=== PATIENT | female | born 1960 | race Caucasian/White ===

== ENCOUNTER 2016-12-28 20:30 | Observation (INO) ==
--- NOTE | 2016-12-28 20:45 | Emergency Department Note ---
Disposition Clinical Impression: TIA (transient ischemic attack) Qualifiers: Transient cerebral ischemia type: unspecified Qualified Code(s): G45.9 - Transient cerebral ischemic attack, unspecified Syncope Qualifiers: Syncope type: unspecified Qualified Code(s): R55 - Syncope and collapse Disposition: Admitted As Inpatient Condition: Fair Time of Disposition: 22:45 Altered Mental Status HPI - General Chief Complaint: ED Altered Mental Status Stated Complaint: AMS Time Seen by Provider: 12/28/16 20:35 Source: family Mode of arrival: wheelchair Limitations: altered mental status Nursing Notes Reviewed: Yes Vital Signs Reviewed: Yes - History of Present Illness HPI Narrative: 56-year-old female presents to the ED as a medical assist for syncope and not acting herself. She was here visiting with her sister and step daughter visiting her ill mother who is admitted here at [facility]. Prior to arrival patient apparently was offered water but then became acutely altered, not able to speak apparently had a syncopal episode. She was wheelchaired to ED 10. On arrival to emergency department sister reports that she has history of anxiety attacks that this was likely anxiety related with the news of her mother. She had recently lost her in visiting her mother today set it off. Blood sugar 102. She does not show any acute focal deficits. They deny any seizure like activity, she was reportedly unconsciousness for 1 minutes. No head injury. Initially she recognizes her twin sister and say her name. Most of the history was given by sister. When asking patient questions she refuses to answer or speak. But lashes out and yelled "let me go home" and "they are going to kill me ". Concerned for her aphasia Stroke Alert was subsequently called. Last known well prior to arrival at 2030. Unable to perform a full NIH assessment NIH score at least 4 due to complete dysarthria and aphasia. However, once stroke alert was called at 2100 symptoms completely spontaneously resolved. She was able to answer questions without difficulty. NIH score 0. Patient was pushed to CT for CT head scan. complaint: altered mental status, confusion - Related Data Home Medications Medication Instructions Recorded Confirmed Lisinopril 12/28/16 Potassium Chloride 12/28/16 Pravastatin Sodium 12/28/16 12/28/16 Allergies Allergy/AdvReac Type Severity Reaction Status Date / Time No Known Allergies Allergy Verified 12/28/16 22:01 Limitations: ROS unobtainable due to patients medical condition (initially due to aphasia but after stroke alert called she answered) Constitutional: Denies: fever, chills Cardiovascular: Denies: chest pain Respiratory: Denies: cough, dyspnea Gastrointestinal: Denies: abdominal pain, nausea, vomiting Genitourinary: Denies: urgency, dysuria Musculoskeletal: Denies: back pain, neck pain Integumentary: Denies: rash, abrasion Neurological: Denies: headache, weakness, numbness Psychiatric: Reports: anxiety Past Medical History - Past Medical History Attestation: Yes The following information was validated with the patient. Source: patient, obtained from family Physical Exam - General Limitations: altered mental status (initially aphasic but now alert and oriented to person place and time) General appearance: alert, in no apparent distress - Head Head exam: atraumatic, normocephalic, normal inspection - Eye Eye exam: Present: normal appearance, PERRL, EOMI - ENT ENT exam: normal exam, normal oropharynx, mucous membranes moist - Neck Neck exam: Present: normal inspection, full ROM, trachea midline - Chest Chest inspection: Present: normal inspection, symmetric chest wall rise. Absent : tenderness - Respiratory Respiratory exam: Present: normal lung sounds bilaterally. Absent: respiratory distress, wheezes - Cardiovascular Cardiovascular exam: Present: regular rate, normal rhythm, normal heart sounds. Absent: systolic murmur, diastolic murmur - Abdominal Exam Abdominal exam: Present: soft, Non-Tender, normal bowel sounds. Absent: tenderness, distention, guarding, rebound, rigidity - Extremities Exam Extremities exam: Present: normal inspection, full ROM, normal capillary refill. Absent: tenderness, pedal edema, calf tenderness - Neurological Exam Neurological exam: Present: alert, oriented X3, CN II-XII intact, normal gait - Expanded Neurological Exam Patient oriented to: Present: person, place, time (2017, unable to recall month) Speech: Present: fluid speech, total aphasia (intially) Cranial nerves: EOM function (II, III, IV, ): Normal, facial sensation (V): Normal, facial palsy (VII): Normal, gag reflex (IX): Normal, spinal accessory function (XI): Normal, tongue deviation (XII): Normal Cerebellar function: finger to nose: Normal, heel to menezes: Normal Cerebellar function: normal gait Motor strength - LUE: 5/5 Motor strength - RUE: 5/5 Motor strength - LLE: 5/5 Motor strength - RLE: 5/5 Upper motor neuron exam: sil neglect: Absent bilaterally, pronator drift: Absent bilaterally Sensory exam upper extremity: light touch: Normal Sensory exam lower extremity: light touch: Normal - Psychiatric Psychiatric exam: Present: normal affect, normal mood - Skin Skin exam: Present: warm, dry, intact, normal color. Absent: rash, cyanosis Course Course Narrative: There was a delay in the stroke alert because family initially suggested that this was possibly anxiety related but when examining the patient she remained aphasic. After pleading to answer questions to best assess the situation and her condition she remained aphasic. Stroke alert was called at 2100. Initial NIH assessment was incomplete due to her aphasia, but likely greater than 4 due to aphasia and dysarthria. Once stroke alert was called patient had complete resolution of symptoms. She was alert, oriented and able to follow commands and speak without difficulty. She answers my questions without difficulty and could recall events prior to syncopal episode. Her aphasia has completely resolved. She has no focal neural deficits. NIH is now 0. Symptoms have rapidly improved and would not be appropriate for tPA. At 2121 stroke alert was cancelled. She never had any facial droop or focal neural deficit. She was able to walk from the wheelchair and sit on the bed cot. Stroke workup initiated. Likely will admit for TIA. - Reevaluation(s) Reevaluation #1: Patient is ambulatory and has normal gait walking to bathroom. Symptoms have completely resolved. Radiologist called in for negative CAT scan of the head for hemorrhage. Patient will likely need admission for TIA workup and syncope. EKG is normal sinus rhythm without signs of LVH, delta wave, acute ischemic changes. Patient is in agreement with plan. Time: 21:40 - Consultations Consultation #1: Spoke with Dr. Medina, hospitalist, tatiana to admit for TIA and syncope. No further orders. Admit for observation. Time: 22:44 Vital Signs Temperature 98.4 F 12/28/16 20:34 Pulse Rate 91 12/28/16 20:34 Respiratory Rate 16 12/28/16 20:34 Blood Pressure 146/127 12/28/16 20:34 O2 Sat by Pulse Oximetry 98 12/28/16 20:34 Temperature 98.4 F 12/28/16 20:34 Pulse Rate 84 03/07/17 21:16 Respiratory Rate 16 12/28/16 21:16 Blood Pressure 126/82 12/28/16 21:16 O2 Sat by Pulse Oximetry 98 12/28/16 20:34 Oxygen Delivery Oxygen Delivery Room Air Altered Mental Status - Medical Records Medical records reviewed: Yes I reviewed the patient's medical records. - Lab Data Lab results reviewed: Yes I reviewed the patient's lab results. Result diagrams: 12/28/16 21:07 12/28/16 21:07 Lab Results 12/28/16 12/28/16 12/28/16 Range/Units 20:39 21:07 21:07 WBC 8.2 (4.3-11.1) K/mcL RBC 4.72 (3.82-4.97) M/mcL Hgb 14.3 (11.5-15.4) g/dL Hct 42.5 (35.3-44.9) % MCV 90.0 (83.0-100.0) fL MCH 30.3 (28.0-33.3) pg MCHC 33.6 (31.6-35.5) g/dL RDW 12.5 (11.5-14.5) % Plt Count 394 (140-400) K/mcL MPV 9.1 L (9.4-12.4) fL Immature Gran % 0.4 (0-4) % Seg Neutrophils % 42.7 % Lymphocytes % 43.9 % Monocytes % 6.9 % Eosinophils % 4.8 % Basophils % 1.3 % Neutrophils # 3.5 (1.6-8.9) K/mcL Lymphocytes # 3.6 (0.6-4.6) K/mcL Monocytes # 0.6 (0.0-1.3) K/mcL Eosinophils # 0.4 (0.0-0.6) K/mcL Basophils # 0.1 (0.0-0.2) K/mcL Immature Plt Fraction 2.1 (1.1-6.1) % PT 10.2 (9.4-12.1) Seconds INR 1.0 APTT 34.1 (26.0-36.0) Seconds Sodium (136-145) mEq/L Potassium (3.5-4.5) mEq/L Chloride (98-109) mEq/L Carbon Dioxide (19-29) mEq/L BUN (7-20) mg/dL Creatinine (0.57-1.11) mg/dL Est GFR ( Amer) (> 60) Est GFR (Non-Af Amer) (> 60) BUN/Creatinine Ratio (6-26) Glucose (70-99) mg/dL POC Glucose 106 H (58-89) Calculated Osmolality (280-300) Calcium (8.6-10.8) mg/dL Troponin I (0-0.03) ng/mL 12/28/16 12/28/16 Range/Units 21:07 21:07 WBC (4.3-11.1) K/mcL RBC (3.82-4.97) M/mcL Hgb (11.5-15.4) g/dL Hct (35.3-44.9) % MCV (83.0-100.0) fL MCH (28.0-33.3) pg MCHC (31.6-35.5) g/dL RDW (11.5-14.5) % Plt Count (140-400) K/mcL MPV (9.4-12.4) fL Immature Gran % (0-4) % Seg Neutrophils % % Lymphocytes % % Monocytes % % Eosinophils % % Basophils % % Neutrophils # (1.6-8.9) K/mcL Lymphocytes # (0.6-4.6) K/mcL Monocytes # (0.0-1.3) K/mcL Eosinophils # (0.0-0.6) K/mcL Basophils # (0.0-0.2) K/mcL Immature Plt Fraction (1.1-6.1) % PT (9.4-12.1) Seconds INR APTT (26.0-36.0) Seconds Sodium 141 (136-145) mEq/L Potassium 3.8 (3.5-4.5) mEq/L Chloride 103 (98-109) mEq/L Carbon Dioxide 27 (19-29) mEq/L BUN 11 (7-20) mg/dL Creatinine 0.80 (0.57-1.11) mg/dL Est GFR ( Amer) > 60 (> 60) Est GFR (Non-Af Amer) > 60 (> 60) BUN/Creatinine Ratio 14 (6-26) Glucose 94 (70-99) mg/dL POC Glucose (58-89) Calculated Osmolality 291 (280-300) Calcium 9.2 (8.6-10.8) mg/dL Troponin I 0.00 (0-0.03) ng/mL - Radiology Data Radiology results reviewed: Yes I reviewed the patient's radiology results. Head CT 12/28/16 00:00 IMPRESSION: No acute intracranial abnormality. The findings were called to Dr. Olmstead on 12/28/2016 at 9:25 p.m. D/ / 12/28/2016 21:31:38 Chriss Riley MD / earno Interpreting Provider: Chriss Riley MD - EKG Data EKG attestation: Yes I reviewed and interpreted this EKG. EKG results narrative: EKG performed 2054 normal sinus rhythm 85 bpm, good R-R wave progression, normal axis, there are no ST elevations or depressions, no T-wave inversions, Q waves in lead III. Intervals are within normal limits GA interval 185 QRS 86 QT QTC 352 395. Compared to old EKG performed 09/15/2010 shows consistent findings normal sinus rhythm 1st degree AV block. No acute ischemic changes. No delta wave, LVH, or Brugada pattern. TPA Checklist - Source Information Source: Family - Eligibilty for IV tPA 1. LKW equal to or less than 4.5 hours be before treatment: Yes 2. Clinical diagnosis of ischemic stroke causing deficit: Yes 3. Age 18 years or older: Yes - Contraindications 4. Evidence of intracranial hemorrhage on pretreatment CT: No 5. Presentation suggests subarachnoid hem, even if CT normal: No - Relative Contraindications 19. Only minor or rapidly improving stroke symptoms: Yes Attestation Statement - Attestation Attestation: I examined this patient and my medical decision-making was reviewed with the PHARMACY AFFAIRS ASSISTANT/PA/Advanced Practice Nurse/Resident Physician. I agree with the documented findings, disposition and treatment plan as described except to the extent set forth below. Patient presents to the emergency department with difficulty speaking. Patient was brought down from the floor. The history from the patient's sister. States she has been this before and been worked up and ruled out for seizures. She has a history of anxiety. On examination she is awake and alert. Moving all extremities. Patient is having trouble speaking. Plan. Family states is consistent with her anxiety. She was monitored but was not improving. Stroke alert was called. Discussed and the dangers of TPA if that was deemed necessary for her aphasia. Patient shortly thereafter began speaking. Patient' s speech normal per family. Stroke CT negative. Labs pending at this time. His workup is unremarkable. She is returned to baseline. She is admitted for TIA workup. NIH Stroke Scale - Level of Consciousness LOC: Alert - LOC Commands LOC Commands: Performs both correctly - Best Gaze Best Gaze: Normal - Facial Palsy Facial Palsy: Normal - Motor Arms Motor Arm-Left: No drift for 10 seconds Motor Arm-Right: No drift for 10 seconds - Motor Legs Motor Leg-Left: No drift for 5 seconds Motor Leg-Right: No drift for 5 seconds - Limb Ataxia Limb Ataxia: Normal, No Ataxia - Sensory Sensory: Normal - Best Language Best Language: Mute, no usable speech - Dysarthria Dysarthria: UN Intubated or other physical barrier (explain) (Aphasic) - Extinction and Inattention Extinction and Inattention: Normal - Pupil Exam Bilateral Pupil Reaction: Brisk (NIH Limited by patient's inability to speak. Repeat NIH was 0)
[2016-12-28 21:26] LABS: Basophils # 0.1 K/mcL (0.0-0.2); Basophils % 1.3 %; Eosinophils # 0.4 K/mcL (0.0-0.6); Eosinophils % 4.8 %; Hematocrit 42.5 % (35.3-44.9); Hemoglobin 14.3 g/dL (11.5-15.4); Immature Granulocytes % 0.4 % (0-4); Immature Platelets 2.1 % (1.1-6.1); Lymphocytes # 3.6 K/mcL (0.6-4.6); Lymphocytes % 43.9 %; Mean Corpuscular HGB Conc 33.6 g/dL (31.6-35.5); Mean Corpuscular Hemoglobin 30.3 pg (28.0-33.3); Mean Platelet Volume 9.1 fL (9.4-12.4); Monocytes # 0.6 K/mcL (0.0-1.3); Monocytes % 6.9 %; Neutrophils # 3.5 K/mcL (1.6-8.9); Platelet Count 394 K/mcL (140-400); Red Blood Count 4.72 M/mcL (3.82-4.97); Red Cell Distribution Width 12.5 % (11.5-14.5); Segmented Neutrophils % 42.7 %
[2016-12-28 21:30] LABS: Prothrombin Time 10.2 Seconds (9.4-12.1)
[2016-12-28 21:33] LABS: Activated Partial Thrombo Time 34.1 Seconds (26.0-36.0); BUN/Creatinine Ratio 14 (6-26); Blood Urea Nitrogen 11 mg/dL (7-20); Calcium 9.2 mg/dL (8.6-10.8); Carbon Dioxide 27 mEq/L (19-29); Chloride 103 mEq/L (98-109); Glucose 94 mg/dL (70-99); Osmolality,Calculated 291 (280-300); Potassium 3.8 mEq/L (3.5-4.5); Sodium 141 mEq/L (136-145); eGFR For African Americans > 60 (> 60); eGFR For Non-African Americans > 60 (> 60)
[2016-12-29] MEDS ORDERED: *HR* OxyCODONE Immed Rel 5 MG TABLET PO PRN (02:01)
[2016-12-29] MEDS ORDERED: Ondansetron ODT 4 MG TAB.RAPDIS SL PRN (02:01)
[2016-12-29] MEDS ORDERED: Acetaminophen 325 MG TABLET PO PRN (02:01)
[2016-12-29] MEDS ORDERED: Naloxone 0.4 MG/ML INJ IVP PRN (02:01)
--- NOTE | 2016-12-29 02:53 | Internal Med History&Physical ---
Date of Encounter: 12/29/16 Time of Encounter: 02:53 Assessment and Plan (1) Syncope Current visit: Yes Status: Acute Patient brought to the ED after becoming acutely confused. She started to fall and family reports she was helped to the floor where she was unconscious for approximately 1 min. Patient was unable to speak and very agitated. Symptoms spontaneously resolved and neuro exam is benign. Concern for possible syncope or TIA. However feel that this could be a conversion episode as patient has a history of anxiety and has been under increased stress with the recent of her and her mother in the hospital. Will do basic syncope workup to exclude other cause. Head CT was negative, do not feel that an MRI is indicated. All electrolytes are within normal limits. 1. EEG 2. ECHO 3. Carotid duplex 4. Cardiac monitoring 5. Aspirin 6. Monitor neuro status 7. Fluids until tolerating regular diet 8. Bedside swallow then regular diet 9. PT/OT consult Qualifiers: Syncope type: unspecified Qualified Code(s): R55 - Syncope and collapse (2) Aphasia Current visit: Yes Status: Acute (3) DVT prophylaxis Current visit: Yes Status: Acute Heparin for DVT prophylaxis. Internal Medicine - H&P: HPI Chief complaint: Syncope, AMS Admitted From: Emergency Dept Plans for Post Hospital Care: Home History of present illness: Ms. Wood is a 56 year old female with PMH including hypertension and anxiety who brought to the ED after a medical assist was called for her on the floor for syncope/AMS. Patient was here with her sister to visit their mother who is a patient here. Family reported that patient became acutely confused. She started to fall and family reports she was helped to the floor where she was unconscious for approximately 1 min. Patient awoke on her own, was confused and agitated. She was unable to speak, appeared very anxious and only seemed to recognize her twin sister. Patient was taken to the ED where a stroke alert was called due to patient's aphasia. After the stroke alert was called and patient returned from CT, all over her symptoms spontaneously resolved. Patient became alert and orientec x3, with no focal neurological symptoms and was able to ambulate with no difficulties. On conversation, patient reports that she does not remember what happened today. She states that she believes something like this has happened to her before but she doesn't know when or what the circumstances where. She does deny any history of stroke or KS. Currently patient denies any blurry vision, MARCELINO, chest pain, shortness of breath , abdominal pain or changes in bowel or bladder function. In the ED, patient was afebrile with vital signs largely within normal limits. Labs grossly normal. Head CT showed no acute abnormality. On exam, patient is awake and alert, answering questions appropriately. Pupils are equal and reactive. Peripheral vision intact. Lungs clear to auscultation. Heart regular rate and rhythm. Abdomen soft nontender. Neuro exam largely benign. Cranial nerves intact. No upper extremity drift. 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 No lower extremity drift. Sensation grossly intact upper and lower extremities Past Med Surg Social Fam HX - Past Medical History Medical history: hyperlipidemia, hypertension Psychiatric history: anxiety - Past Surgical History Surgical History: no surgical history - Social History Smoking Status: Former smoker Smokeless Tobacco Status: No Alcohol use: none Drug use: none - Family History Mother Hx Family Cardiac Disorders: Yes Internal Medicine - H&P: Meds Lisinopril 12/28/16 [History] Potassium Chloride 12/28/16 [History] Pravastatin Sodium 12/28/16 [History] Allergies No Known Allergies Allergy (Verified 12/28/16 22:01) All Systems PM: A 10-system review of systems was performed and is negative for pertinent findings except as documented above in the HPI. - Constitutional Constitutional: no chills, no fever(s), no falls - EENT Eyes: no blurry vision, no change in vision - Cardiovascular Cardiovascular ROS IM: no chest pain, no dyspnea, no dyspnea on exertion, no irregular heart rhythm, no palpitations - Respiratory Respiratory: no cough, no dyspnea, no dyspnea on exertion, no wheezing - Gastrointestinal Gastrointestinal: no abdominal pain, no cramping, no diarrhea, no nausea, no vomiting - Genitourinary Genitourinary: no change in urinary stream, no dysuria - Neurological Neurological ROS: confusion, no abnormal gait, no abnormal movements, no abnormal speech, no focal weakness, no headache(s), no tingling, no tremor(s), no weakness - Constitutional Vitals: Temp Pulse Resp BP Pulse Ox 97.6 F 80 12 109/68 97 12/29/16 00:05 12/29/16 00:05 12/29/16 00:05 12/29/16 00:05 12/29/16 00:05 General appearance: Present: A&O X 3, pleasant, no acute distress - Head Head exam: Present: atraumatic, normal inspection, normocephalic - Eye Eye exam: Present: normal appearance, PERRL - ENT ENT exam: Present: mucous membranes moist - Respiratory Respiratory exam: Present: CTAB. Absent: rales, rhonchi, wheezes - Cardiovascular Cardiovascular exam: Present: RRR - GI/Abdominal GI/Abdominal exam: Present: soft. Absent: guarding, rebound, rigid, tenderness - Extremities Exam Extremities exam: Present: normal inspection. Absent: pedal edema - Expanded Neurological Exam Neurological exam expanded: Present: protecting the airway Patient oriented to: Present: person, place, time Speech: Present: fluid speech Upper motor neuron: Marcelo neglect: Normal, pronator drift: Normal Sensory exam: lower extremity light touch: Normal, upper extremity light touch: Normal Neuro motor strength exam: LUE: 4, RUE: 4, LLE: 5, RLE: 5 Coma Scale Eye Opening: Spontaneous Coma Scale Motor Response: Obeys Commands Coma Scale Verbal Response: Oriented Coma Scale Total: 15 Internal Med - H&P Results - Labs CBC & Chem 7: 12/28/16 21:07 12/28/16 21:07
--- NOTE | 2016-12-29 03:08 | Event Note ---
Date of Encounter: 12/29/16 Time of Encounter: 03:08 Patients examined with medical care evaluation specialist. Suspect conversion disorder. However this is a diagnosis of exclusion. We will check in EEG: carotid. If all well, will discharge in a.m.
[2016-12-29] MEDS: 0.9 % Sodium Chloride 1,000 ML IVC SCH (06:23)
[2016-12-29] MEDS: *HR* Heparin 5,000 UNIT/ML VIAL SQ SCH ×2 (06:24→22:19)
[2016-12-29 07:25] LABS: Chol/HDL Ratio 4.2 (0-4.9)
[2016-12-29] MEDS: Aspirin 81 MG TAB.CHEW PO SCH (07:52)
--- NOTE | 2016-12-29 10:52 | Neurology - Consult Note ---
<Pelon Ross - Last Filed: 12/29/16 13:28> Date of Encounter: 12/29/16 Time of Encounter: 10:50 Assessment and Plan (1) Syncope Current Visit: Yes Status: Acute Patient's neurologic examination is benign. She is slightly slow to answer questions but appears to be contemplated. The patient answers all questions correctly and follows all commands. The patient is a poor historian but seems to be more participation and not wanting to answer any questions. The patient has had history of syncope in the past but is unsure the etiology. The patient denies any prodromal symptoms noted. With the patient's recent loss of and son she seems to be very distraught at this time. The need for further imaging of the patient does not seem warranted at this time given the patient's lack of focalized deficits on initial examination as well as further examination. The patient was noted to be aphasic upon presentation to the emergency department but this again appears to be participatory and cooperative rather than true aphasia. The patient does admit not wanting to speak intermittently due to "feeling sad". The patient is very tearful during the examination. Echocardiogram, carotid Doppler, EEG are currently pending. The patient denies any suicidal attempt or medication or toxin overdose. There could be a component of possible seizure-like activity given the patient's symptoms but are unlikely given the patient's past and lack of seizures. EEG and further follow-up are warranted. There also may be a non-neurologic component of the patient's syncope. Psychiatric evaluation may also be warranted at this time. We will continue to follow the patient and monitor for any neurologic changes. (2) Hypertension Current Visit: Yes Status: Chronic History of Present Illness Chief complaint: Fall, AMS HPI: Ms. Wood is a 56 year old female with history of hypertension arrives to [facility] emergency department after the patient was at home and was not quite acting like herself according to family and had a syncopal episode to where the patient had a controlled fall by her daughter and was on the ground for roughly 1 minute. Upon awakening the patient remained very agitated for 2-3 minutes and then quickly came to back to her baseline. The patient was brought to the emergency department at this time for further workup. Head CT revealed no acute findings. No other etiology of the patient' s symptoms or events was found in the emergency department the patient was admitted to the hospitalist for further workup. The patient recently lost her as well as her son within the past month. She did this and the patient is very distraught due to her mother being in the hospital at this time. The patient admits to a large amount of stress and is very tearful at this time upon further questioning of recent events and history of falls. The patient does state that she has had near syncopal or syncopal episodes in the past and has had "workups". She is unsure what the etiology of these events are. The patient denies any history of seizure like activity, any prodromal symptoms including chest pain, difficulty breathing, headache, shaking, on swells, visual changes. The patient denies any complaints at this time other than "feeling sad". Past Med Surg Social Fam HX - Past Medical History Attestation: Yes The following information was validated with the patient. Medical history: hyperlipidemia, hypertension Psychiatric history: anxiety - Past Surgical History Surgical History: no surgical history - Social History Smoking Status: Former smoker Smokeless Tobacco Status: No Alcohol use: none Drug use: none Current living situation: Home - Independent - Family History Mother Hx Family Cardiac Disorders: Yes Medications and Allergies Lisinopril [Zestril] 10 mg PO DAILY 12/28/16 [History] Potassium Chloride [K-Tab ER] 20 meq PO BID 12/28/16 [History] Pravastatin Sodium [Pravachol] 40 mg PO DAILY 12/28/16 [History] Allergies No Known Allergies Allergy (Verified 12/28/16 22:01) All Systems: A 10-system review of systems was performed and is negative for pertinent findings except as documented above in the HPI. Review of Systems: Patient denies any complaints at this time. - Psychiatric Psychiatric general PM: abnormal sleep pattern, anxiety, hopelessness, memory loss Physical Examination - Vital Signs Vital Signs: Initial Vital Signs Temp Pulse Resp BP Pulse Ox 98.4 F 91 16 146/127 98 12/28/16 20:34 12/28/16 20:34 12/28/16 20:34 12/28/16 20:34 12/28/16 20:34 - Constitutional General appearance: comfortable - Neurologic Sensorimotor examination: intact Detailed motor examination: full strength in all major muscle groups Motor examination - right side: 5/5: deltoids, biceps, triceps, wrist flexion, wrist extension, bottling supervisor, hip flexors, tibialis Anterior, quadriceps, toe extension (EHL), plantarflexion Motor examination - left side: 5/5: deltoids, biceps, triceps, wrist flexion, wrist extension, hip flexors, bottling supervisor, quadriceps, tibialis Anterior, toe extension (EHL), plantarflexion Detailed sensory examination: intact Reflexes: Biceps: 2+, Brachioradialis: 2+, Patella: 2+, Achilles: 2+ Mental Status Examination: awake, alert, oriented to person, oriented to place, oriented to time, follows commands appropriately, answers questions appropriately, no agnosia, no aphasia, no aproxia Cranial nerve examination: PERRL, EOMI, visual alvarez intact, corneal reflexes brisk symmetrically, sensory to face intact, mastication intact, no facial asymmetry is present, no dysarthria, hearing is intact symmetrically, soft palate elevates bilaterally upon phonation, gag reflex intact, flexes SCM and trapezius muscles symmetrically with full power, tongue protrudes midline, no atrophy or facial fasiculations present Cerebellar examination: no dysmetria, performs finger to nose and heel to menezes symmetrically without ataxia, no gait ataxia, no truncal ataxia, no difficulty with rapid alternating movements Results - Laboratory Findings CBC and BMP: 12/28/16 21:07 12/28/16 21:07 Abnormal lab findings: Abnormal lab results MPV 9.1 fL (9.4-12.4) L 12/28/16 21:07 POC Glucose 106 (58-89) H 12/28/16 20:39 Triglycerides 154 mg/dL (< 150) H 12/29/16 06:28 Cholesterol 217 mg/dL (< 200) H 12/29/16 06:28 LDL Cholesterol, Calc 134 mg/dL (0-99) H 12/29/16 06:28 VLDL Cholesterol, Calc 31 mg/dL (< 31) H 12/29/16 06:28 - Attending Attestation I examined this patient and my medical decision-making was reviewed with the Resident Physician. I agree with the documented findings, disposition and treatment plan as described except to the extent set forth below. Consult Discharge Plan - [facility] [place] [Primary Care Provider[facility] - <Jose Cunningham I - Last Filed: 12/29/16 15:49> Assessment and Plan (1) Syncope Current Visit: Yes Status: Acute I examined this patient and my medical decision-making was reviewed with the Resident Physician. I agree with the documented findings, disposition and treatment plan as described except to the extent set forth below. will review EEG, at this point no need for any AED levels that is abnormality on the EEG she already had a CT scan of the head which was reported as negative perhaps made to MRI of the brain without contrast to exclude any other etiology, She would benefit from formal psychiatric evaluation as I strongly suspect that her symptoms are related to underlying severe distress. He did have some difficulty with the left-sided lower extremity weakness for which she could be evaluated by physical therapy suspect is more peripheral than central. s I think it could be reasonable to get an MRI of the brain to make sure no other intracranial process as sometimes early CT imaging does not show any acute abnormality. There are no focal findings but certainly the possibility of infarct in the frontal lobe that can present with behavior changes. Jose Cunningham MD Qualifiers: Syncope type: unspecified Qualified Code(s): R55 - Syncope and collapse History of Present Illness HPI: Ms. Wood is a 56 year old female All Systems: A 10-system review of systems was performed and is negative for pertinent findings except as documented above in the HPI. Physical Examination - Vital Signs Vital Signs: Initial Vital Signs Temp Pulse Resp BP Pulse Ox 98.4 F 91 16 146/127 98 12/28/16 20:34 12/28/16 20:34 12/28/16 20:34 12/28/16 20:34 12/28/16 20:34 Results - Laboratory Findings CBC and BMP: 12/28/16 21:07 12/28/16 21:07 Abnormal lab findings: Abnormal lab results MPV 9.1 fL (9.4-12.4) L 12/28/16 21:07 POC Glucose 106 (58-89) H 12/28/16 20:39 Triglycerides 154 mg/dL (< 150) H 12/29/16 06:28 Cholesterol 217 mg/dL (< 200) H 12/29/16 06:28 LDL Cholesterol, Calc 134 mg/dL (0-99) H 12/29/16 06:28 VLDL Cholesterol, Calc 31 mg/dL (< 31) H 12/29/16 06:28
[2016-12-29 13:02] LABS: Amphetamine Screen,Urine Negative ng/mL (Cutoff=1000); Barbiturate Screen,Urine Negative ng/mL (Cutoff=200); Benzodiazepines Screen,Urine Negative ng/mL (Cutoff=200); Cannabinoid Screen,Urine Negative ng/mL (Cutoff = 50); Cocaine Screen,Urine Negative ng/mL (Cutoff= 300); Opiate Screen,Urine Negative ng/mL (Cutoff=300); Phencyclidine Screen,Urine Negative ng/mL (Cutoff=25)
--- NOTE | 2016-12-29 13:31 | Internal Med Progress Note ---
Date of Encounter: 12/29/16 Time of Encounter: 12:30 - Assessment and plan (1) Aphasia Current Visit: Yes Status: Acute Assessment and plan: Unclear causation at this time. Patient is alert and interactive however she is still bleed when answering questions and gets confused at times. She does not remember the event yesterday at which time a medical payment poster was called in on her. She does not know why her mom was in the hospital. She is able to answer simple orientation questions and is oriented 3. She denies pain or shortness of breath. Head CT negative. Tox screen negative. OARRS report negative. Carotid ultrasound, echocardiogram, and EEG are pending. OT and PT have recommended ECF placement, social studies department chair on board. Neurology also on board. She does not have any focal neurological weakness is present on examination. During my interaction with her, she was attempting to eat lunch but had difficulty opening the silverware from the plastic case and had difficulty eating a wrap as she was attempting to enroll the wrap appeared as if she could not figure out how to eat it. Her family was present in the emergency department and initially upon her admission and they state that how she is acting now is consistent with how her anxiety manifests. They state that she has recently experienced the of her being in the hospital with her mom likely triggered an anxiety attack. We will await results of EEG, echocardiogram, and carotid. Initial conclusion is that the patient is on several antianxiety meds as she appears mildly sedated however tox screen negative- could be taking medications not covered on standard tox screen. Patient denies any drug or alcohol abuse. ITS Impressions Head CT 12/28/16 00:00 IMPRESSION: No acute intracranial abnormality. The findings were called to Dr. Olmstead on 12/28/2016 at 9:25 p.m. D/ / 12/28/2016 21:31:38 Chriss Riley MD / earno Interpreting Provider: Chriss Riley MD (2) Syncope Current Visit: Yes Status: Acute Assessment and plan: See prior note for aphasia Qualifiers: Syncope type: unspecified Qualified Code(s): R55 - Syncope and collapse (3) TIA (transient ischemic attack) Current Visit: Yes Status: Suspected (4) DVT prophylaxis Current Visit: Yes Status: Acute Assessment and plan: Subcutaneous heparin (5) Hypertension Current Visit: Yes Status: Chronic Assessment and plan: Controlled/hypotensive at times. Home dose of lisinopril is being held, will continue to trend Qualifiers: Hypertension type: essential hypertension Qualified Code(s): I10 - Essential (primary) hypertension - Subjective Interval history: Patient seen and examined. On examination, patient sitting upright in her bed attempting to open up her silverware for her lunch. She denies pain or shortness of breath. She states she does not know it happened yesterday to have her brought into the hospital and she does not know why her mother was admitted to the hospital. - Constitutional Vitals: Temp Pulse Resp BP Pulse Ox 97.6 F 74 16 126/81 96 12/29/16 11:15 12/29/16 11:15 12/29/16 11:15 12/29/16 11:15 12/29/16 11:15 General appearance: Present: disheveled, A&O X 3, pleasant, no acute distress, answers questions appropriately (simple questions) - Head Head exam: Present: atraumatic, normocephalic - Eye Eye exam: Present: PERRL, conjuntiva pink, sclera anicteric Pupils: Present: PERRL - Neck Neck exam general surgery: Present: supple, trachea midline. Absent: lymphadenopathy - Respiratory Respiratory exam: Present: CTAB. Absent: accessory muscle use, rales, respiratory distress, rhonchi, wheezes - Cardiovascular Cardiovascular exam: Present: RRR, +S1, +S2. Absent: diastolic murmur, gallop, rubs, systolic murmur - GI/Abdominal GI/Abdominal exam: Present: normal bowel sounds, soft, no peritoneal signs. Absent: distended, tenderness - Extremities Exam Extremities exam: Present: warm, radial pulses palpable and symetrical. Absent : calf tenderness, cyanotic, pedal edema - Neurological Exam Neurological exam: Present: alert, altered, CN II-XII intact, oriented X3, no focal deficits, strengths equal and symetr throughout. Absent: pronater drift, facial droop, speech deficit - Expanded Neurological Exam Neurological exam expanded: Present: expressive aphasia, protecting the airway Patient oriented to: Present: person, place, time Speech: Present: fluid speech Cranial Nerves: EOM's intact PM: Normal Neuro motor strength exam: LUE: 5, RUE: 5, LLE: 5, RLE: 5 Coma Scale Eye Opening: Spontaneous Coma Scale Motor Response: Obeys Commands Coma Scale Verbal Response: Confused Coma Scale Total: 14 - Psychiatric Psychiatric exam: Present: flat affect. Absent: suicidal ideation - Expanded Psychiatric Exam Focused psych exam: Present: catatonic - Skin Skin exam: Present: dry, intact, pallor, warm Internal Medicine: Result - Labs CBC & Chem 7: 12/28/16 21:07 12/28/16 21:07 - ABG Interpretation ABG results: PT/INR, D-dimer PT 10.2 Seconds (9.4-12.1) 12/28/16 21:07 Consult Discharge Plan - Plan Referrals: Jose Miguel Maldonado MD [Primary Care Provider] -
--- NOTE | 2016-12-29 13:52 | Electrocardiograph Report ---
[address] [address] Test Date: 2016-12-28 Pat Name: Hayley Wood Department: 105 Room: 3B Gender: F Mathematics Technician: : 1960 Requested By: Rashad Olmstead Order Number: [id number] Reading MD: Kyle Medina MD Measurements Intervals [place] Rate: 85 P: 38 CO: 185 QRS: 11 QRSD: 86 T: 46 QT: 352 QTc: 395 Interpretive Statements SINUS RHYTHM Electronically Signed On 12-29-2016 13:50:30 EST by Kyle Medina MD
--- NOTE | 2016-12-29 16:11 | EEG/EMG/Oth Biometrics Report ---
EEG Procedure Report Date of procedure: 12/29/16 EEG Procedure: Routine EEG Procedure Note: Patient with mental status changes difficulty with fine motor movements and significant depression Routine EEG Routine 18-channel digital EEG was obtained to rule out any seizure activity or focal abnormalities. FINDINGS: Background rhythm during awake stage shows well-organized, well- developed, average voltage 8 to 9 hertz alpha activity in the posterior regions. It blocks with eye opening and it is bilaterally synchronous and symmetrical. No [id number] discharges or any lateralizing abnormalities are seen. Photic stimulation did not produce any abnormalities. Hyperventilation was not performed. No abnormalities were found during the procedure. Intermittent EMG artifacts were seen. Stage II sleep was not achieved. IMPRESSION: Normal awake study. No epileptiform discharges or any other paroxysmal activities or focal abnormalities seen. Clinical correlation is recommended.
--- NOTE | 2016-12-29 16:48 | Consult Note ---
Date of Encounter: 12/29/16 Time of Encounter: 16:00 Assessment & Recommendation (1) Abnormal grief reaction Current visit: Yes Status: Acute Assessment & Recommendation: I recommend voluntary hospitalization in behavioral health to evaluate patient for depression and establish treatment plan. This was discussed with the patient and her sister and also shared with nursing staff. History of Present Illness Patient: new to practice Requesting Physician: Brenda Centeno Reason for consult: depression History of present illness: Ms. Wood is a 56 year old female admitted for evaluation and treatment of syncopal episodes. Psychiatric consultation was requested to evaluate patient for depression and possible conversion reaction. Records and reports indicated that patient lost her recently and a year ago lost her son. There is no evidence that patient received any mental health help after these significant losses. Patient did not provide adequate history and information were given by the patient's twin sister. CC: Brenda Centeno Past Med Surg Social Fam HX - Past Medical History Medical history: hyperlipidemia, hypertension - Past Surgical History Surgical History: no surgical history - Social History Smoking Status: Former smoker Smokeless Tobacco Status: No Alcohol use: none Drug use: none - Family History Mother Hx Family Cardiac Disorders: Yes Medications & Allergies Lisinopril [Zestril] 10 mg PO DAILY 12/28/16 [History] Potassium Chloride [K-Tab ER] 20 meq PO BID 12/28/16 [History] Pravastatin Sodium [Pravachol] 40 mg PO DAILY 12/28/16 [History] Allergies No Known Allergies Allergy (Verified 12/28/16 22:01) Mental Status Exam Patient orientation: Yes Person, Yes Time, Yes Place Level of alertness: Alert Patient appearance: Appropriate, Well Groomed Behavior: calm, cooperative, anxious, tearful, guarded, withdrawn Psychomotor activity: Slowed Eye contact: Diverts Contact Mood description: Depressed, Anxious Affect description: constricted, tearful Speech pattern: Normal rate, Normal rhythm, Normal tone, Slowed, Limited Speech volume: Soft/Quiet Thought process: Linear, Goal Oriented Thought content: No Suicidal ideation, No Homicidal ideation, No Overt delusions Perceptual disturbances: No Auditory hallucinations, No Visual hallucinations Attention span: Capable of Sustained Attention Memory description: Grossly Intact Patient reliability: Questionable Historian Intelligence estimate: Average Judgment: Limited Insight: Partial Results - Vital Signs Vital signs: Temp Pulse Resp BP Pulse Ox 97.6 F 74 16 126/81 96 12/29/16 11:15 12/29/16 11:15 12/29/16 11:15 12/29/16 11:15 12/29/16 11:15 - Drug Levels and Toxicology Drug Levels and Toxicology: Drug Levels and Toxicity 12/29/16 12:45 Urine Opiates Screen Negative Ur Barbiturates Screen Negative Ur Phencyclidine Scrn Negative Ur Amphetamines Screen Negative U Benzodiazepines Scrn Negative Urine Cocaine Screen Negative U Marijuana (THC) Screen Negative - Labs Labs: Laboratory Last Values WBC 8.2 K/mcL (4.3-11.1) 12/28/16 21:07 RBC 4.72 M/mcL (3.82-4.97) 12/28/16 21:07 Hgb 14.3 g/dL (11.5-15.4) 12/28/16 21:07 Hct 42.5 % (35.3-44.9) 12/28/16 21:07 MCV 90.0 fL (83.0-100.0) 12/28/16 21:07 MCH 30.3 pg (28.0-33.3) 12/28/16 21:07 MCHC 33.6 g/dL (31.6-35.5) 12/28/16 21:07 RDW 12.5 % (11.5-14.5) 12/28/16 21:07 Plt Count 394 K/mcL (140-400) 12/28/16 21:07 MPV 9.1 fL (9.4-12.4) L 12/28/16 21:07 Immature Gran % 0.4 % (0-4) 12/28/16 21:07 Seg Neutrophils % 42.7 % 12/28/16 21:07 Lymphocytes % 43.9 % 12/28/16 21:07 Monocytes % 6.9 % 12/28/16 21:07 Eosinophils % 4.8 % 12/28/16 21:07 Basophils % 1.3 % 12/28/16 21:07 Neutrophils # 3.5 K/mcL (1.6-8.9) 12/28/16 21:07 Lymphocytes # 3.6 K/mcL (0.6-4.6) 12/28/16 21:07 Monocytes # 0.6 K/mcL (0.0-1.3) 12/28/16 21:07 Eosinophils # 0.4 K/mcL (0.0-0.6) 12/28/16 21:07 Basophils # 0.1 K/mcL (0.0-0.2) 12/28/16 21:07 Immature Plt Fraction 2.1 % (1.1-6.1) 12/28/16 21:07 PT 10.2 Seconds (9.4-12.1) 12/28/16 21:07 INR 1.0 12/28/16 21:07 APTT 34.1 Seconds (26.0-36.0) 12/28/16 21:07 Sodium 141 mEq/L (136-145) 12/28/16 21:07 Potassium 3.8 mEq/L (3.5-4.5) 12/28/16 21:07 Chloride 103 mEq/L (98-109) 12/28/16 21:07 Carbon Dioxide 27 mEq/L (19-29) 12/28/16 21:07 BUN 11 mg/dL (7-20) 12/28/16 21:07 Creatinine 0.80 mg/dL (0.57-1.11) 12/28/16 21:07 Est GFR ( Amer) > 60 (> 60) 12/28/16 21:07 Est GFR (Non-Af Amer) > 60 (> 60) 12/28/16 21:07 BUN/Creatinine Ratio 14 (6-26) 12/28/16 21:07 Glucose 94 mg/dL (70-99) 12/28/16 21:07 POC Glucose 106 (58-89) H 12/28/16 20:39 Calculated Osmolality 291 (280-300) 12/28/16 21:07 Calcium 9.2 mg/dL (8.6-10.8) 12/28/16 21:07 Troponin I 0.00 ng/mL (0-0.03) 12/28/16 21:07 Triglycerides 154 mg/dL (< 150) H 12/29/16 06:28 Cholesterol 217 mg/dL (< 200) H 12/29/16 06:28 LDL Cholesterol, Calc 134 mg/dL (0-99) H 12/29/16 06:28 VLDL Cholesterol, Calc 31 mg/dL (< 31) H 12/29/16 06:28 HDL Cholesterol 52 mg/dL (40-59) 12/29/16 06:28 Cholesterol/HDL Ratio 4.2 (0-4.9) 12/29/16 06:28 Urine Opiates Screen Negative ng/mL (Rtshea=605) 12/29/16 12:45 Ur Barbiturates Screen Negative ng/mL (Fdklfn=211) 12/29/16 12:45 Ur Phencyclidine Scrn Negative ng/mL (Cutoff=25) 12/29/16 12:45 Ur Amphetamines Screen Negative ng/mL (Hwaqtl=0269) 12/29/16 12:45 U Benzodiazepines Scrn Negative ng/mL (Eaudpz=545) 12/29/16 12:45 Urine Cocaine Screen Negative ng/mL (Cutoff= 300) 12/29/16 12:45 U Marijuana (THC) Screen Negative ng/mL (Cutoff = 50) 12/29/16 12:45 Consult Discharge Plan - Plan Referrals: Joel,Jose Miguel Tiwari MD [Primary Care Provider] -
[2016-12-30] MEDS: 0.9 % Sodium Chloride 1,000 ML IVC SCH (06:28)
[2016-12-30] MEDS: *HR* Heparin 5,000 UNIT/ML VIAL SQ SCH (06:28)
--- NOTE | 2016-12-30 08:00 | ECHO - Doppler Report ---
Echo with Saline Contrast Name: Hayley Wood Date of Study: 12/29/2016 Date: 1960 Ht: 65.0 in Medical Record#: [id number] Age: 56 Wt: 140.0 lb Gender: Female BSA: 1.7 Order #: [id number] Location: [facility] Room #: 3B37 Reading Physician: Avila Garcia MD, [facility] Pipelines Supervisor: Delfina Giraldo Ordering Physician: Shea Morales DO Primary Physician: Jose Miguel Maldonado MD Indications: Syncope, Questionable TIA Impressions: Normal LV systolic function, LVEF 55%. No significant valvular dysfunction. No evidence of pulmonary hypertension. There is a probable small patent foramen ovale (PFO) by agitated saline contrast. There is a trivial to small pericardial effusion present. There is no echocardiographic evidence of tamponade. Left Ventricular Wall Motion: Rest Echo Findings All wall segments showed normal motion. Findings: Study Quality * Suboptimal echo windows. ECG Findings * Normal sinus rhythm. Left Ventricle * Normal LV systolic function, LVEF 55%. * Normal LV chamber size and wall thickness. * Indeterminate diastolic function. Right Ventricle * Normal RV size and function. Left Atrium * Normal left atrial size. Right Atrium * Normal right atrial size. Interatrial Septum * There is a probable small patent foramen ovale (PFO) by agitated saline contrast. Aorta * Normally sized aortic root. Pericardium * There is a trivial to small pericardial effusion present. * There is no echocardiographic evidence of tamponade. IVC * The IVC is not dilated. Tricuspid Valve * Normal tricuspid valve structure. * No tricuspid stenosis. * Trace tricuspid regurgitation. * No evidence of pulmonary hypertension. Pulmonic Valve * Pulmonic valve is not well visualized. * No pulmonic stenosis. * Trace pulmonic regurgitation. Aortic Valve * Trileaflet aortic valve. * No aortic stenosis. * No aortic regurgitation. Mitral Valve * Normal mitral valve structure. * No mitral stenosis. * Trace mitral regurgitation. History Hypertension Hypercholesteremia Years 1 Packs 0.5 Family History of CAD Contrast: Agitated saline 20 ml. Measurements: BP: 126/ 81 2D Normal Values RVIDd: 2.90 cm IVSd: .80 cm 0.6 - 1.0 cm LVIDd: 4.50 cm 3.7 - 5.6 cm LVPWd: .80 cm 0.6 - 1.1 cm LVIDs: 3.00 cm 1.5 - 3.6 cm AO: 2.90 cm < 4.0 cm LA volume: 16 Mitral Valve Peak E:.50 m/sec Peak A:.47 m/sec E/A Ratio:1.1 Tricuspid Valve TV Regurg Peak Grad: 18.00mmHg TV Regurg Peak Robert: 2.10m/sec Updated by Avila Garcia MD, [facility] on 12/30/2016 7:54:47 AM electronically signed on 12/30/2016 7:55:16 AM with status of Final Wall Motion [place]: 1=Normal, 2=Hypokinesis, 3=Akinesis, 4=Dyskinesis, 5=Aneurysmal, 6=Hyperkinetic, X=Not Visualized (Blank)=Missing
--- NOTE | 2016-12-30 08:13 | Carotid Imaging Report ---
Carotid Duplex Patient Name:Hayley Wood Order Number:[id number] Procedure Date:12/29/2016 Date:1960ge:56 yrs Gender:Female Lt BP:126 / 81 mmHg Rt.BP:126 / 81 mmHgHeart Rate: Location:[facility] Room #: 3B37 Control Valve Mechanic:Delfina Giraldo Referring MD:Shea Morales DO backrest assembler:Jose Miguel Maldonado MD Reading MD:Tang Hogue MD , FACS Primary Indications:Syncope, Questionable TIA Risk Factors Yes/No Hypertension Yes Hypercholesterolemia Yes Hx of TIA Unknown Smoker Previous Impressions: Findings: Bilateral carotid system is essentially normal. Findings Prior Study: No prior study available for comparison. Carotid Results Right PSV EDV Assessment Proximal CCA 77 24 Normal Mid CCA 65 23 Normal Distal CCA 57 26 Normal Bifurcation 56 23 Normal Proximal ICA 54 22 Normal Mid ICA 53 29 Normal Distal ICA 70 34 Normal ECA 62 17 Normal Vertebral Artery 47 20 Antegrade Flow Left PSV EDV Assessment Proximal CCA 55 20 Normal Mid CCA 67 25 Normal Distal CCA 62 25 Normal Bifurcation 68 26 Normal Proximal ICA 37 16 Normal Mid ICA 65 30 Normal Distal ICA 69 37 Normal ECA 61 16 Normal Vertebral Artery 53 20 Antegrade Flow Ratio's Right ICA/CCA Ratio: 1.08 ICA/CCA Values: 70/65 Left ICA/CCA Ratio: 1.03 ICA/CCA Values: 69/67 Updated by Tang Hogue MD, FACS on 12/30/2016 8:08:20 AM Tang Hogue MD electronically signed on 12/30/2016 8:08:50 AM with status of Final
--- NOTE | 2016-12-30 10:10 | Neurology Progress Note ---
Date of Encounter: 12/30/16 Time of Encounter: 10:06 Assessment and Plan (1) Syncope Current Visit: Yes Status: Acute Patient EEG and MRI demonstrated no acute process. The patient syncope is likely not neurologic origin. There may be a psychiatric component to the patient's syncope. This appears to be a possible true conversion disorder, however outpatient neurology follow-up should be considered. The patient had a psychiatric evaluation who recommended voluntary admission to the inpatient psychiatric unit, which the patient states she will not be doing. The patient does state that the psychiatrist was willing to refill for anti-anxiolytic medication and the patient has follow-up scheduled with psychiatrist outpatient within 1 week. The patient continues to deny any other new symptoms. Her examination is benign at this time. We will follow-up with the patient as needed. We do appreciate psychiatric consultation. Qualifiers: Syncope type: unspecified Qualified Code(s): R55 - Syncope and collapse (2) Hypertension Current Visit: Yes Status: Chronic Qualifiers: Hypertension type: essential hypertension Qualified Code(s): I10 - Essential (primary) hypertension Subjective Principal diagnosis: Syncope, fall Interval history: The patient had an EEG as well as MRI which demonstrated no acute process. Psychiatric evaluation recommended admission voluntarily to inpatient unit. Patient states she has had no further episodes of syncope or dizziness. Patient states she would like to go home at this time. She states she has an appointment set up with psychiatry outpatient. Objective - Constitutional Vitals: Temp Pulse Resp BP Pulse Ox 97.7 F 75 18 106/64 98 12/30/16 07:12 12/30/16 07:12 12/30/16 07:12 12/30/16 07:12 12/30/16 07:12 General appearance: Present: cooperative, A&O X 3, no acute distress, answers questions appropriately - Neurological Exam Sensorimotor examination: Present: intact Motor Examination: Present: full strength in all major muscle groups Motor examination - right side: 5/5: deltoids, biceps, triceps, wrist flexion, wrist extension, remnants cutter, hip flexors, tibialis Anterior, quadriceps, toe extension (EHL), plantarflexion Motor examination - left side: 5/5: deltoids, biceps, triceps, wrist flexion, wrist extension, hip flexors, remnants cutter, quadriceps, tibialis Anterior, toe extension (EHL), plantarflexion Sensation intact: Present: intact Reflexes: Biceps: 2+, Patella: 2+ Mental Status Examination: Present: awake, alert, oriented to person, oriented to place, oriented to time, follows commands appropriately, answers questions appropriately, no agnosia, no aphasia, no aproxia Cranial nerve examination: Present: PERRL, EOMI, visual alvarez intact, corneal reflexes brisk symmetrically, sensory to face intact, mastication intact, no facial asymmetry is present, no dysarthria, hearing is intact symmetrically, soft palate elevates bilaterally upon phonation, gag reflex intact, flexes SCM and trapezius muscles symmetrically with full power, tongue protrudes midline, no atrophy or facial fasiculations present Cerebellar examination: Present: no dysmetria, performs finger to nose and heel to menezes symmetrically without ataxia, no difficulty with rapid alternating movements Results - Laboratory Findings CBC and BMP: 12/28/16 21:07 12/28/16 21:07 Abnormal lab findings: Abnormal lab results MPV 9.1 fL (9.4-12.4) L 12/28/16 21:07 POC Glucose 106 (58-89) H 12/28/16 20:39 Triglycerides 154 mg/dL (< 150) H 12/29/16 06:28 Cholesterol 217 mg/dL (< 200) H 12/29/16 06:28 LDL Cholesterol, Calc 134 mg/dL (0-99) H 12/29/16 06:28 VLDL Cholesterol, Calc 31 mg/dL (< 31) H 12/29/16 06:28 Consult Discharge Plan - [facility] [place] Care Provider[place] - - Attending Attestation I examined this patient and my medical decision-making was reviewed with the Resident Physician. I agree with the documented findings, disposition and treatment plan as described except to the extent set forth below.
[2016-12-30] MEDS: Aspirin 81 MG TAB.CHEW PO SCH (10:31)
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
[2016-12-30 14:53] VITALS: BP 103/66
== END 2016-12-30 15:55 | disposition home or self-care (01) ==
LOC: EMEROO 20:30 → 3BNU 20:30
PROVIDERS: ADMIT Hospitalist; ATTEND Nurse Practitioner Family

== ENCOUNTER 2022-03-26 21:55 | Observation (INO) ==
[2022-03-27] MEDS ORDERED: *HR* LORazepam 0.5 MG TABLET PO PRN (02:39)
[2022-03-27] MEDS ORDERED: Perflutren Lipid Microsphere 1.3 ML in 0.9 % Sodium Chloride 8.7 ML IVP PRN (02:42)
[2022-03-27] MEDS ORDERED: Ondansetron 4 MG/2 ML VIAL IVP PRN (03:04)
[2022-03-27] MEDS ORDERED: Acetaminophen 325 MG TABLET PO PRN (03:04)
[2022-03-27] MEDS ORDERED: Naloxone 0.4 MG/ML INJ IVP PRN (03:04)
[2022-03-27] MEDS ORDERED: Calcium Gluconate 1gm/50mL 1 GM/50 ML BAG IVPB ONE (03:11)
[2022-03-27] MEDS ORDERED: levETIRAcetam 250 MG TABLET PO SCH (06:00)
[2022-03-27 06:47] LABS: Hematocrit 41.7 % (35.3-44.9); Hemoglobin 12.9 g/dL (11.5-15.4); Mean Corpuscular HGB Conc 30.9 g/dL (31.6-35.5); Mean Corpuscular Hemoglobin 29.1 pg (28.0-33.3); Mean Corpuscular Volume 93.9 fL (83.0-100.0); Mean Platelet Volume 9.6 fL (9.4-12.4); Platelet Count 290 K/mcL (140-400); Red Blood Count 4.44 M/mcL (3.82-4.97); Red Cell Distribution Width 13.8 % (11.5-14.5); White Blood Count 7.1 K/mcL (4.3-11.1)
[2022-03-27 07:10] LABS: BUN/Creatinine Ratio 13 (6-26); Blood Urea Nitrogen 8 mg/dL (8-23); Calcium 9.2 mg/dL (8.6-10.3); Carbon Dioxide 27 mEq/L (23-29); Chloride 107 mEq/L (98-107); Chol/HDL Ratio 3.7 (0-4.9); Cholesterol 186 mg/dL (< 200); Glucose 110 mg/dL (70-105); HDL Cholesterol 50 mg/dL (40-59); LDL Cholesterol,Calculated 101 mg/dL (< 100); Osmolality,Calculated 291 (280-300); Potassium 3.5 mEq/L (3.5-5.1); Sodium 141 mEq/L (136-145); Triglycerides 177 mg/dL (< 150); Troponin I < 0.03 ng/mL (< 0.04); eGFR For African Americans > 60 (> 60); eGFR For Non-African Americans > 60 (> 60)
[2022-03-27 07:30] LABS: Estimated Average Glucose 131 mg/dl; Hemoglobin A1C 6.2 %
[2022-03-27 07:58] LABS: Bilirubin,Urine Negative (Negative); Blood,Urine Moderate (Negative); Clarity,Urine Clear (Clear); Color,Urine Light-Yellow (Yellow); Glucose,Urine (UA) Normal (Normal); Ketones,Urine Negative (Negative); Leukocyte Esterase,Urine Negative (Negative); Nitrite,Urine Negative (Negative); Protein,Urine Trace mg/dL (Neg-Trace); RBC,Urine 50-100 per hpf (0-3); Specific Gravity,Urine 1.022 (1.010-1.025); Urobilinogen,Urine Normal (Normal); WBC,Urine 0-3 per hpf (0-3)
[2022-03-27] MEDS: Aspirin Enteric Coated 81 MG Tablet PO SCH (08:19)
[2022-03-27] MEDS: carBAMazepine 200 MG TABLET PO SCH ×2 (08:19→20:23)
[2022-03-27] MEDS ORDERED: FLUoxetine 20 MG CAPSULE PO SCH (09:00)
[2022-03-27] MEDS ORDERED: Topiramate 25 MG TABLET PO SCH (09:00)
[2022-03-27] MEDS: Topiramate 25 MG TABLET PO SCH (20:22)
[2022-03-27] MEDS: levETIRAcetam 250 MG TABLET PO SCH (20:22)
[2022-03-28 02:55] LABS: Hematocrit 37.9 % (35.3-44.9); Hemoglobin 12.1 g/dL (11.5-15.4); Mean Corpuscular HGB Conc 31.9 g/dL (31.6-35.5); Mean Corpuscular Hemoglobin 29.4 pg (28.0-33.3); Mean Platelet Volume 9.6 fL (9.4-12.4); Platelet Count 308 K/mcL (140-400); Red Blood Count 4.12 M/mcL (3.82-4.97); Red Cell Distribution Width 13.8 % (11.5-14.5); White Blood Count 7.3 K/mcL (4.3-11.1)
[2022-03-28 03:11] LABS: BUN/Creatinine Ratio 18 (6-26); Blood Urea Nitrogen 15 mg/dL (8-23); Calcium 9.1 mg/dL (8.6-10.3); Carbon Dioxide 24 mEq/L (23-29); Chloride 106 mEq/L (98-107); Glucose 120 mg/dL (70-105); Osmolality,Calculated 290 (280-300); Potassium 3.5 mEq/L (3.5-5.1); Sodium 139 mEq/L (136-145); eGFR For African Americans > 60 (> 60); eGFR For Non-African Americans > 60 (> 60)
[2022-03-28] MEDS: Topiramate 25 MG TABLET PO SCH (08:20)
[2022-03-28] MEDS ORDERED: FLUoxetine 20 MG CAPSULE PO SCH (09:00)
[2022-03-28] MEDS: Aspirin Enteric Coated 81 MG Tablet PO SCH (09:02)
[2022-03-28] MEDS: carBAMazepine 200 MG TABLET PO SCH (09:02)
[2022-03-28] MEDS: levETIRAcetam 250 MG TABLET PO SCH (09:02)
[2022-03-28 11:42] VITALS: BP 121/76; PULSE 88; TEMP 97.6; O2SAT 96
== END 2022-03-28 13:15 | disposition home or self-care (01) ==
LOC: 3BNU → SUATTDRO 23:59
PROVIDERS: ADMIT Internal Medicine; ATTEND General Practice